=== PATIENT | female | born 1930 | race African-American/Black ===

== ENCOUNTER 2021-05-11 16:08 | Inpatient (IN) | payer MEDICARE ==
[2021-05-11 18:12] LABS: #Monocytes 0.9 10x3/uL (0.0-1.1); %Basophils 0.3 % (0.0-2.0); %Eosinophils 0.2 % (0.0-6.0); %Lymphocytes 12.1 % (18.0-47.0); %Monocytes 8.4 % (0.0-10.0); Mean Corpuscular HGB CONC 32.3 g/dL (32.0-36.0); Mean Corpuscular Volume 89.5 fl (81.6-98.3); Mean Platelet Volume 10.1 fl (7.4-10.4); Platelet Count 285 10x3/uL (150-450); RBC Distribution Width 13.7 % (11.5-14.5); Red Blood Cell (RBC) Count 4.49 10x6/uL (3.90-5.03); White Blood Cell (WBC) Count 10.3 10x3/uL (3.5-10.5)
[2021-05-11 18:55] LABS: ALT (SGPT) 13 U/L (8-55); AST (SGOT) 22 U/L (5-34); Albumin 2.6 g/dL (3.4-4.8); Alkaline Phosphatase 169 U/L (40-110); Anion Gap 17 mmol/L (10-20); BUN (Urea Nitrogen) 12 mg/dL (9.8-20.1); Bilirubin, Total 0.7 mg/dL (0.2-1.2); Calc. Creatinine Clearance 0 mL/min (70-130); Calcium 8.6 mg/dL (7.8-10.44); Carbon Dioxide 21 mmol/L (23-31); Chloride 103 mmol/L (98-107); Globulin 3.8 g/dL (2.4-3.5); Glucose 219 mg/dL (83-110); Lipase 113 U/L (8-78); Potassium 4.4 mmol/L (3.5-5.1); Protein, Total 6.4 g/dL (5.8-8.1); Sodium 137 mmol/L (136-145)
[2021-05-11] MEDS ORDERED: Azithromycin 500 MG VIAL ONE (19:07)
[2021-05-11] MEDS ORDERED: cefTRIAXone\\ROCEPHIN 2 GM VIAL ONE (19:07)
[2021-05-11] MEDS ORDERED: Guaifenesin DM 100-10/5 ML UDCUP PO PRN (19:16)
[2021-05-11] MEDS ORDERED: Senokot S 8.6-50 MG TAB PO PRN (19:16)
[2021-05-11] MEDS ORDERED: Calcium Carbonate 500 MG ChewTAB PO PRN (19:16)
[2021-05-11] MEDS ORDERED: Acetaminophen 325 MG TAB PO PRN (19:16)
[2021-05-11] MEDS ORDERED: Ondansetron PF 4 MG/2 ML Vial IVP PRN (19:16)
[2021-05-11] MEDS ORDERED: Lorazepam 2 MG/ML VIAL SLOW IVP PRN (19:22)
[2021-05-11] MEDS ORDERED: Sodium Chloride 0.9% 1,000 ML IV SCH (19:30)
[2021-05-11] MEDS ORDERED: levETIRAcetam in NS 1,000 MG in Premix Bag 1 BAG IVPB SCH (20:30)
[2021-05-11 20:44] LABS: Bilirubin Neg (Negative); Blood, Urine Negative (Negative); Clarity Clear (Clear); Glucose, Urine (Dipstick) Normal (Negative); Ketone, Urine 5 mg/dL (Negative); Leukocyte 100 (Negative); Nitrite Negative (Negative); Protein, Urine (Dipstick) 15 mg/dl (Neg-Trace); Specific Gravity, Urine 1.015 (1.002-1.036); pH, Urine 6.5 (5.0-9.0)
[2021-05-11 20:49] LABS: Bacteria/HPF Rare-Few HPF (None Seen); RBC/HPF 0-3 HPF (0-3)
[2021-05-11 22:02] VITALS: BMI 19.2
[2021-05-12 04:12] LABS: #Eosinphils 0.1 10x3/uL (0.0-0.5); #Monocytes 1.1 10x3/uL (0.0-1.1); #Neutrophils 5.5 10x3/uL (1.5-8.4); %Basophils 0.4 % (0.0-2.0); %Eosinophils 0.5 % (0.0-6.0); %Lymphocytes 29.1 % (18.0-47.0); %Monocytes 11.6 % (0.0-10.0); %Neutrophils 57.8 % (40.0-75.0); Mean Corpuscular HGB CONC 31.2 g/dL (32.0-36.0); Mean Corpuscular Hemoglobin 28.8 pg (27.0-33.0); Mean Corpuscular Volume 92.3 fl (81.6-98.3); Mean Platelet Volume 9.9 fl (7.4-10.4); Platelet Count 257 10x3/uL (150-450); RBC Distribution Width 13.6 % (11.5-14.5); Red Blood Cell (RBC) Count 4.17 10x6/uL (3.90-5.03); White Blood Cell (WBC) Count 9.6 10x3/uL (3.5-10.5)
[2021-05-12 04:32] LABS: ALT (SGPT) Less than 6 U/L (8-55); AST (SGOT) 15 U/L (5-34); Albumin 3.2 g/dL (3.4-4.8); Alkaline Phosphatase 51 U/L (40-110); Anion Gap 13 mmol/L (10-20); BUN (Urea Nitrogen) 10 mg/dL (9.8-20.1); Bilirubin, Total 0.2 mg/dL (0.2-1.2); CK (CPK) 52 U/L (29-168); Calc. Creatinine Clearance 38 mL/min (70-130); Calcium 8.6 mg/dL (7.8-10.44); Carbon Dioxide 24 mmol/L (23-31); Chloride 108 mmol/L (98-107); Globulin 3.1 g/dL (2.4-3.5); Glucose 79 mg/dL (83-110); Magnesium 1.9 mg/dL (1.6-2.6); Potassium 4.2 mmol/L (3.5-5.1); Protein, Total 6.3 g/dL (5.8-8.1); Sodium 141 mmol/L (136-145)
[2021-05-12] MEDS ORDERED: Magnesium Sulfate/D5W 1 GM/100 ML BAG IVPB SCH (06:15)
[2021-05-12] MEDS ORDERED: Mometasone 200 MCG/Formoterol 5 MCG 120 PUFF INHALER INH SCH (06:30)
[2021-05-12] MEDS ORDERED: Enoxaparin Sodium 30 MG/0.3 ML SYRINGE SC SCH (09:00)
[2021-05-12] MEDS ORDERED: Mometasone/Formoterol 200/5 60 PUFF INH SCH (09:30)
[2021-05-12] MEDS: Mometasone/Formoterol 200/5 60 PUFF INH SCH (19:09)
[2021-05-12] MEDS ORDERED: levETIRAcetam 500 MG TAB PO SCH (21:00)
[2021-05-12] MEDS: levETIRAcetam 500 mg/5 ml Oral Solution PO SCH (21:15)
[2021-05-13] MEDS: Mometasone/Formoterol 200/5 60 PUFF INH SCH (08:05)
[2021-05-13] MEDS ORDERED: Enoxaparin Sodium 40 MG/0.4 ML SYRINGE SC SCH (09:00)
[2021-05-13] MEDS: levETIRAcetam 500 mg/5 ml Oral Solution PO SCH (09:08)
[2021-05-13] MEDS ORDERED: Valproate Sodium 250 mg/5 ml UD Cup PO SCH ×2 (10:30→21:00)
[2021-05-13 12:14] VITALS: BP 155/68; TEMP 97.6
== END 2021-05-13 14:02 | disposition home or self-care (01) | DRG 100 ==
LOC: CSHERS 16:08 → CSHTELE 21:44 → OBSVTOIN 21:44
PROVIDERS: ADMIT Student in an Organized Health Care Education/Training Program; ATTEND Internal Medicine
DX: G40.919 Epilepsy, unspecified, intractable, without status epilepticus (principal); J69.0 Pneumonitis due to inhalation of food and vomit; N17.9 Acute kidney failure, unspecified; J44.0 Chronic obstructive pulmonary disease with (acute) lower respiratory infection; R53.81 Other malaise; N18.2 Chronic kidney disease, stage 2 (mild); Z66 Do not resuscitate; Z85.038 Personal history of other malignant neoplasm of large intestine; Z87.891 Personal history of nicotine dependence
CPT/HCPCS: 36415; 70450; 71045; 80053; 80164; 81003; 81015; 82550; 83605; 83690; 83735; 84145; 84484; 85025; 87040; 87086; 93005; 93970; 94760; J0456; J0696; J1650; J1953; J1956; J3475; J7050